=== PATIENT | male | born 1945 | race Caucasian/White ===

== ENCOUNTER 2017-01-20 06:47 | Emergency (ER) | payer OTHER ==
--- NOTE | 2017-01-20 09:53 | ER NURSING DOCUMENTATION ---
Nurse's Notes [facility] ([place], [place]) Name:Fausto Carlson Age:71 yrs Sex:Male :1945 Arrival Date:01/20/2017 Time:06:47 Bed4 Private MD: Diagnosis:Wound Recheck Presentation: 01/20 06:50 Acuity: ISHA 4 tg 06:55 Presenting complaint: Patient states: Pt came home from the [place] in [place] last night tg with a new colostomy. Pt was attempting to empty the bag this AM and accidently removed the bag, which caused the dressing to get soiled. Pt does not know how to change dressing or reattach bag. Home Health was to visit him later today. Pt did not bring any supplies to the ED. Pt is only requesting help with clean up and reattaching a new dressing/bag. Transition of care: patient was not received from another setting of care. 06:55 Method Of Arrival: Private Vehicle tg 07:06 Notified ED Physician of patient's arrival and CC Dr. Burciaga notified. tg Triage Assessment: 07:02 General: Appears in no apparent distress, Behavior is cooperative, pleasant. Pain: tg Denies pain. Neuro: Level of Consciousness is awake, alert. Cardiovascular: Capillary refill < 3 seconds. Respiratory: Respiratory effort is even, unlabored. GI: Abdomen is obese, sigmoidostomy to left of belly button. Wafer and adhesive soiled with stool. when removed, sutures are visible and intact. Skin around ostomy is pink, no obvious sign of infection. Brown liquid stool is draining from ostomy site. other Dressing over incision site is soiled and therefore removed. Incision is vertical from wasteband to above belly button. Scant clear drainage. No obvious sign of infection. Evans intact- wound is open approx 0.5cm at the middle of the incision, just below the belly button, otherwise well approximated. Wound cleaned using sterile procedure, NS, then dressed with bacitracin, xeroform, non-adherant, and medipore tape. Pt tolerated well. Derm: Bruising that is dark purple, on left low back. Musculoskeletal:. Historical: - Allergies: Lisinopril; - Home Meds: 1. losartan oral 2. other BP med at night - PMHx: Hypertension; Intestinal infection; perf colon; - PSHx: sigmoidostomy; - Tetanus: < 10 years. - Ebola Screening: : Patient negative for fever greater than or equal to 101.5 degrees Fahrenheit, and additional compatible Ebola Virus Disease symptoms. Patient denies exposure to infectious person. Patient denies travel to an Ebola-affected area in the 21 days before illness onset. No symptoms or risks identified at this time. . - Immunization history: Flu Vaccine < 1 year. - Social history: Smoking status: Patient states former smoker of tobacco. Screenin:37 Infectious Disease Risk Unable to Obtain. Abuse screen: Denies threats or abuse. Denies tg injuries from another. Nutritional screening: No deficits noted. Assessment: 07:37 See Triage Assessment done by same RN. tg 09:51 Reassessment: Plan of care (Dressing change, D/C home, have pt follow up with PCP tg Sunday or return to ED for worsening condiotions) discussed with Dr. Burciaga via phone at 0900. Dr. Burciaga agrees with plan. . Vital Signs: 07:00 BP 119 / 85; Pulse 98; Resp 16; Temp 98.2(O); Pulse Ox 94% on R/A; Weight 100.7 kg (R); tg Height 5 ft. 10 in. (177.80 cm) (R); Pain 0/10; 09:44 Pulse 84; Resp 16; Pulse Ox 94% on R/A; tg 07:00 Body Mass Index 31.85 (100.70 kg, 177.80 cm) tg ED Course: 06:50 Patient arrived in ED. ma1 06:50 Triage completed. tg 07:00 Arm band placed on Bed in low position Call Light in Reach HOB Elevated Side rails up tg x1. 07:14 Ady Molina, RN is Primary Nurse. tg 09:44 Valuables Remains with patient. tg Administered Medications: No medications were administered Outcome: 09:38 Discharged to home Pt able to transfer and take a few steps to wheelchair. Pt reports tg he is still getting his strength back, but feels "very" safe at home and is confident that he can safely perform ADLs now that he has seen how to change the ostomy dressing PRN 09:38 Condition: stable 09:38 Discharge Assessment: Patient awake and alert. [facility] [place] that [facility], it seems that although a home health consult was requested, it has not been fully ordered (it is in process) by the [place]. Pt will call his PCP on Sunday to follow up, and agrees that he will need further assistance from home health with incision dressing changes and anything else ordered by his PCP. CHAD Nguyen from Home health, came to the ED and brought supplies to change the wafer and bag. Pt has his own supplies at home. 09:38 Instructed on discharge instructions, follow up and referral plans. 09:50 Discharge ordered by . tg 09:52 Patient left the ED. tg Signatures: Ady Molina RN RN Jerri Chamorro
== END 2017-01-20 09:52 | disposition home or self-care (01) ==
LOC: ER 06:47
DX: K94.03 Colostomy malfunction (principal); Z43.3 Encounter for attention to colostomy; Z48.01 Encounter for change or removal of surgical wound dressing; Z93.3 Colostomy status; I10 Essential (primary) hypertension; Z79.899 Other long term (current) drug therapy
CPT/HCPCS: 99281

== ENCOUNTER 2017-01-26 14:08 | Inpatient (IN) | payer MEDICARE, OTHER ==
[2017-01-26 14:43] LABS: BASOPHIL# 0.1 X 10^3uL (0.0-0.1); BASOPHILS 0.6 % (0.0-2.0); EOSINOPHILS 4.6 % (0.0-6.0); EOSINOPHILS# 0.4 X 10^3uL (0.0-0.4); HEMATOCRIT 28.6 % (42.0-54.0); HEMOGLOBIN 9.8 g/dL (14.0-18.0); LYMPHOCYTES 22.4 % (20.0-40.0); MEAN CELL VOLUME 91.6 fL (80.0-100.0); MEAN CORPUS. HGB CONCENTRATION 34.4 g/dL (32.0-36.0); MEAN CORPUSCULAR HEMOGLOBIN 31.5 pg (29.0-35.0); MEAN PLATELET VOLUME 7.7 fL (7.4-10.4); MONOCYTES 5.7 % (2.0-10.0); MONOCYTES# 0.5 X 10^3uL (0.2-1.0); NEUTROPHILS 66.7 % (54.0-75.0); NEUTROPHILS# 5.8 X 10^3uL (2.6-6.7); PLATELET COUNT 349 X 10^3uL (130-440); RED BLOOD COUNT 3.12 X 10^6uL (4.20-6.10); RED CELL DISTRIBUTION WIDTH 14.6 % (11.5-14.5); WHITE BLOOD COUNT 8.8 X 10^3uL (3.9-10.7)
[2017-01-26 14:53] LABS: ALKALINE PHOSPHATASE 114 U/L (38-126); ALT 36 U/L (21-72); AST 28 U/L (17-59); BILIRUBIN, DIRECT 0.3 mg/dL (0.0-0.4); BILIRUBIN, TOTAL 1.3 mg/dL (0.2-1.3); BLOOD UREA NITROGEN 16 mg/dL (9-20); CALCIUM 8.1 mg/dL (8.4-10.2); CHLORIDE 90 mmol/L (98-107); CREATININE 1.1 mg/dL (0.7-1.3); EST GLOMERULAR FILTRATION RATE > 60 mL/min; GLUCOSE 73 mg/dL (70-100); LIPASE 209 U/L (23-300); SODIUM 121 mmol/L (137-145); TOTAL PROTEIN 7.1 g/dL (6.3-8.2)
[2017-01-26] MEDS ORDERED: HOME MEDICATION LIST NEEDED 1 EA EACH MISC ONE (15:59)
--- NOTE | 2017-01-26 16:53 | ER PHYSICIAN DOCUMENTATION ---
Physician Documentation [facility] Name:Fausto Carlson Age:71 yrs Sex:Male :1945 Arrival Date:01/26/2017 Time:14:08 Bed4 Private MD: Robbin Connell Disposition: 01/26/17 15:46 Admit ordered for Nicole Delgado. Preliminary diagnosis are Hyponatremia, Anemia, Orthostatic Hypotension. - Bed requested for Medical/Surgical. - Condition is Fair. - Problem is new. - Symptoms have improved. 23 HR OBS Yes HPI: 01/26 15:30 This 71 yrs old Male presents to ER via Private Vehicle with complaints of sc Dizziness. 15:30 The patient presents with dizziness, feeling faint, generalized weakness, sc lightheadedness. Onset: The symptom(s)/episode began/occurred gradually, 2 day(s) ago. Context: occurred at home, occurred while the patient was getting up from bed. Modifying factors: The symptoms are alleviated by lying down. Severity of symptoms: At their worst the symptoms were moderate. Crohn's Dz., new ostomy, now very orthostatic.. Historical: - Allergies: Lisinopril; - Home Meds: 1. losartan oral 2. other BP med at night - PMHx: HYPERTENSION; Intestinal infection; perf colon; Wound Recheck (January 20, 2017); CROHN'S; - PSHx: sigmoidostomy; - Tetanus: unknown. - Ebola Screening: : Patient negative for fever greater than or equal to 101.5 degrees Fahrenheit, and additional compatible Ebola Virus Disease symptoms. Patient denies exposure to infectious person. Patient denies travel to an Ebola-affected area in the 21 days before illness onset. No symptoms or risks identified at this time. . - Social history: Smoking status: Patient states former smoker of tobacco. - Immunization history: Flu Vaccine unknown. ROS: 15:37 Constitutional: Negative for fever, chills, and weight loss. sc Eyes: Negative for injury, pain, redness, and discharge. ENT: Negative for injury, pain, and discharge. Neck: Negative for injury, pain, and swelling. Cardiovascular: Negative for chest pain, palpitations, and edema. Respiratory: Negative for shortness of breath, cough, wheezing, and pleuritic chest pain. Abdomen/GI: Negative for abdominal pain, nausea, vomiting, diarrhea, and constipation. Back: Negative for injury and pain. MS/Extremity: Negative for injury and deformity. 15:37 Skin: Negative for injury, rash, and discoloration. sc 15:37 Neuro: Positive for dizziness. Exam: Head/Face: Normocephalic, atraumatic. Eyes: Pupils equal round and reactive to light, extra-ocular motions intact. Lids and lashes normal. Conjunctiva and sclera are non-icteric and not injected. Cornea within normal limits. Periorbital areas with no swelling, redness, or edema. ENT: Nares patent. No nasal discharge, no septal abnormalities noted. Tympanic membranes are normal and external auditory canals are clear. Oropharynx with no redness, swelling, or masses, exudates, or evidence of obstruction, uvula midline. Mucous membranes moist. Neck: Trachea midline, no thyromegaly or masses palpated, and no cervical lymphadenopathy. Supple, full range of motion without nuchal rigidity, or vertebral point tenderness. No meningismus. Chest/axilla: Normal chest wall appearance and motion. Nontender with no deformity. No lesions are appreciated. Cardiovascular: Regular rate and rhythm with a normal S1 and S2. No gallops, murmurs, or rubs. Normal PMI, no JVD. No pulse deficits. Respiratory: Lungs have equal breath sounds bilaterally, clear to auscultation and percussion. No rales, rhonchi or wheezes noted. No increased work of breathing, no retractions or nasal flaring. 15:42 Back: No spinal tenderness. No costovertebral tenderness. Full range of motion. sc 15:42 Constitutional: The patient appears alert, awake, frail. 15:42 Abdomen/GI: Inspection: abdomen appears normal, scar(s), are noted in the suprapubic area, Bowel sounds: normal, Palpation: abdomen is soft and non-tender, ostomy and midline scar healing well. 15:42 Neuro: Orientation: is normal, Cerebellar function: is grossly normal, Gait: unable to assess, orthostatic. Vital Signs: 14:17 BP 124 / 75 Supine; Pulse 68; Resp 20; Temp 98.2; Pulse Ox 96% ; Weight 97.52 kg; rs Height 5 ft. 10 in. (177.80 cm); Pain 0/10; 14:19 BP 106 / 78 Sitting; Pulse 78; Resp 20; Pulse Ox 95% on R/A; Pain 0/10; rs 14:21 BP 67 / 51 Standing; Pulse 90; rs 14:24 BP 124 / 83; Pulse 72; Resp 25; Pulse Ox 97% on R/A; Pain 0/10; rs 14:32 Pulse 71; Resp 14; Pulse Ox 98% on R/A; Pain 0/10; rs 14:41 BP 123 / 85; Pulse 68; Resp 18; Pulse Ox 97% on R/A; Pain 0/10; rs 15:00 BP 131 / 80 (auto/); rs 15:04 Pulse 75 MON; Resp 18; rs 15:30 BP 140 / 86 (auto/); rs 15:34 Pulse 81 MON; Resp 18; Pulse Ox 97% ; rs 16:01 BP 129 / 79 (auto/); tg 16:09 Pulse 86 MON; Resp 19; Pulse Ox 98% ; tg 14:17 Body Mass Index 30.85 (97.52 kg, 177.80 cm) rs MDM: 14:52 Patient medically screened. ma 15:44 Differential diagnosis: GI bleed, hypovolemia, sepsis. Data reviewed: vital signs, ma nurses notes, old medical records, lab test result(s), and as a result, I will admit patient. Counseling: I had a detailed discussion with the patient and/or guardian regarding: the historical points, exam findings, and any diagnostic results supporting the discharge/admit diagnosis, lab results, the need for further work-up and treatment in the hospital. Physician consultation: Nicole Delgado MD was called at 15:44, was contacted at 15:44, regarding admission, patient's condition. 01/26 14:46 Order name: CBC AUTO DIF, MDIF/RMOR IF IND; Complete Time: 15:01 EDUT 01/26 15:01 Interpretation: Abnormal: HEMOGLOBIN 9.8; HEMATOCRIT 28.6; mild anemia. ma 01/26 14:54 Order name: BASIC METABOLIC PANEL; Complete Time: 15:01 EDUT 01/26 15:01 Interpretation: Abnormal: SODIUM 121; CALCIUM 8.1. ma 01/26 14:54 Order name: HEPATIC PANEL; Complete Time: 15:01 EDUT 01/26 15:01 Interpretation: Abnormal: ALBUMIN 3.0. ma 01/26 14:54 Order name: LIPASE; Complete Time: 15:01 EDUT 01/26 15:01 Interpretation: Normal. ma 01/26 17:21 Order name: OSMOLALITY, SERUM [facility] 01/26 17:22 Order name: URINE SODIUM,RANDOM EDUT 01/26 17:28 Order name: OSMOLALITY, URINE EDUT 01/26 17:38 Order name: THYROID STIMULATING HORMONE [facility] 01/27 06:05 Order name: CBC AUTO DIF, MDIF/RMOR IF IND EDUT 01/27 06:19 Order name: BASIC METABOLIC PANEL [facility] 01/28 07:05 Order name: BASIC METABOLIC PANEL [facility] 01/28 11:04 Order name: CORTISOL EDUT 01/26 14:29 Order name: Urine Dip; Complete Time: 14:40 tg Dispensed Medications: 14:39 Drug: NS 0.9% 1000 ml; Volume: 1000 ml; Route: IV; Rate: bolus; Site: right rs antecubital; Delivery: [place] Tubing; 16:49 Follow up: IV Status: Completed infusion; IV Intake: 1000ml tg Point of Care Testing: Urine Dip: 14:47 pH: 7; ; Specific [place]: 1.01; Ketones: Negative; Glucose: Negative; Protein: tg Negative; Leukocytes: Negative; Nitrite: Negative ; Blood: Negative; Bilirubin: Negative ; Urobilinogen: Normal Signatures: Ady Molina RN RN Janay Miranda RN RN rs Chew, Scott, MD MD ma
--- NOTE | 2017-01-26 16:53 | ER NURSING DOCUMENTATION ---
Nurse's Notes [facility] Name:Fausto Carlson Age:71 yrs Sex:Male :1945 Arrival Date:01/26/2017 Time:14:08 Bed4 Private MD: Diagnosis:Hyponatremia;Anemia;Orthostatic Hypotension Presentation: 01/26 14:25 Acuity: ISHA 2 tg 14:26 Transition of care: patient was not received from another setting of care. Notified ED tg Physician of patient's arrival and CC Dr. Burciaga notified. 14:26 Method Of Arrival: Private Vehicle tg 14:48 Presenting complaint: Patient states: FEELING DIZZY WHEN STANDING SINCE YESTERDAY. NO tg FEVER OR CHILLS. REPORTS PLENTY OF PO FLUID INTAKE. INTERMITENT PAIN IN R ABD. NEW OSTOMY ON LEFT ABD. DRESSING CDI FROM MIDLINE INCISION ON ABD. Transition of care: patient was received from another setting of care (home health care). Triage Assessment: 14:49 General: Appears in no apparent distress, comfortable, Behavior is cooperative, tg pleasant. Pain: Denies pain. Neuro: Level of Consciousness is awake, alert. Cardiovascular: Capillary refill < 3 seconds. Respiratory: Respiratory effort is even, unlabored. GI: Abdomen is obese, Ostomy appliance is intact. Derm: Skin is pink, warm & dry. Historical: - Allergies: Lisinopril; - Home Meds: 1. losartan oral 2. other BP med at night - PMHx: HYPERTENSION; Intestinal infection; perf colon; Wound Recheck (January 20, 2017); CROHN'S; - PSHx: sigmoidostomy; - Tetanus: unknown. - Ebola Screening: : Patient negative for fever greater than or equal to 101.5 degrees Fahrenheit, and additional compatible Ebola Virus Disease symptoms. Patient denies exposure to infectious person. Patient denies travel to an Ebola-affected area in the 21 days before illness onset. No symptoms or risks identified at this time. . - Social history: Smoking status: Patient states former smoker of tobacco. - Immunization history: Flu Vaccine unknown. Screenin:53 Infectious Disease Risk Unable to Obtain. Abuse screen: Denies threats or abuse. Denies tg injuries from another. Nutritional screening: No deficits noted. Assessment: 14:51 See Triage Assessment done by same RN. tg 15:31 Reassessment: HEMOCULT NEGATIVE. DR BURCIAGA AND DR DELGADO NOTIFED.. tg Vital Signs: 14:17 BP 124 / 75 Supine; Pulse 68; Resp 20; Temp 98.2; Pulse Ox 96% ; Weight 97.52 kg; rs Height 5 ft. 10 in. (177.80 cm); Pain 0/10; 14:19 BP 106 / 78 Sitting; Pulse 78; Resp 20; Pulse Ox 95% on R/A; Pain 0/10; rs 14:21 BP 67 / 51 Standing; Pulse 90; rs 14:24 BP 124 / 83; Pulse 72; Resp 25; Pulse Ox 97% on R/A; Pain 0/10; rs 14:32 Pulse 71; Resp 14; Pulse Ox 98% on R/A; Pain 0/10; rs 14:41 BP 123 / 85; Pulse 68; Resp 18; Pulse Ox 97% on R/A; Pain 0/10; rs 15:00 BP 131 / 80 (auto/); rs 15:04 Pulse 75 MON; Resp 18; rs 15:30 BP 140 / 86 (auto/); rs 15:34 Pulse 81 MON; Resp 18; Pulse Ox 97% ; rs 16:01 BP 129 / 79 (auto/); tg 16:09 Pulse 86 MON; Resp 19; Pulse Ox 98% ; tg 14:17 Body Mass Index 30.85 (97.52 kg, 177.80 cm) rs ED Course: 14:10 Patient arrived in ED. lm3 14:25 Ady Molina, RN is Primary Nurse. tg 14:25 Triage completed. tg 14:35 Inserted saline lock: 20 gauge in right antecubital area and blood collected. rs 14:51 Arm band placed on Bed in low position Call Light in Reach Gowned HOB Elevated Side tg rails up x1. 14:52 Robbin Burciaga MD is Attending Physician. sc 14:53 Valuables Remains with patient. tg 15:45 Nicole Delgado MD is Admitting Physician. sc Administered Medications: 14:39 Drug: NS 0.9% 1000 ml; Volume: 1000 ml; Route: IV; Rate: bolus; Site: right rs antecubital; Delivery: [place] Tubing; 16:49 Follow up: IV Status: Completed infusion; IV Intake: 1000ml tg Point of Care Testing: Urine Dip: 14:47 pH: 7; ; Specific [place]: 1.01; Ketones: Negative; Glucose: Negative; Protein: tg Negative; Leukocytes: Negative; Nitrite: Negative ; Blood: Negative; Bilirubin: Negative ; Urobilinogen: Normal Intake: 16:49 IV: 1000ml; Total: 1000ml. tg Output: 16:29 Urine: 600ml (Voided); Total: 600ml. tg Outcome: 15:46 Decision to Admit by Provider. oh 16:48 Admitted to Med/surg accompanied by nurse, via stretcher. tg 16:48 Condition: improved 16:48 Discharge Assessment: Patient awake and alert. 16:48 Instructed on need to admit 16:50 Report given to CHAD Serra 16:52 Patient left the ED. tg Signatures: Ady Molina RN RN tg Stalker, Rachael, RN RN rs Chew, Scott, MD MD oh Gloria, Mariya lm3
[2017-01-26 17:27] LABS: OSMOLALITY, URINE 251 mOsm/Kg (500-800)
[2017-01-26] MEDS: NORMAL SALINE 1,000 ML IV SCH (17:28)
[2017-01-26 17:34] LABS: THYROID STIMULATING HORMONE 1.37 uIU/mL (0.47-4.68)
[2017-01-26] MEDS ORDERED: LORazepam 2 MG/ML INJ IV PRN (17:54)
[2017-01-26] MEDS ORDERED: THIAMINE HCL IV SCH (18:00)
[2017-01-26] MEDS ORDERED: FOLIC ACID IV SCH (18:00)
[2017-01-26] MEDS ORDERED: NORMAL SALINE IV SCH (18:00)
[2017-01-26] MEDS ORDERED: MULTIVITAMINS IV SCH (18:00)
[2017-01-26] MEDS ORDERED: NORMAL SALINE 1,000 ML IV ONE (18:45)
[2017-01-26] MEDS ORDERED: THIAMINE HCL 200 MG/2 ML VIAL ONE (18:45)
[2017-01-26] MEDS ORDERED: MULTIVITAMINS 10 ML VIAL IV ONE (18:45)
--- NOTE | 2017-01-26 22:37 | HISTORY & PHYSICAL ---
DATE OF ADMISSION: 01/26/17 ATTENDING PHYSICIAN: Nicole Delgado MD ADMITTING DIAGNOSES 1. Hyponatremia. 2. Orthostatic hypotension. 3. Anemia. 4. Dizziness and weakness. HISTORY OF PRESENT ILLNESS: Patient is a 71-year-old mal, generally cared for by the [place] system, who had been at home about a week after a hospital admission in [place] for a perforated colon, peritonitis and sepsis. He had undergone an emergency sigmoid colon resection with ostomy placement. This occurred on . He spent several weeks in the hospital, and was ultimately discharged to home. At home, he admits that he has not been eating or drinking well, and mainly has been living on Boost and oranges. He does have Home Health Care checking on him and Meals on Wheels have been organized for Sunday. Patient was extremely dizzy and unable to stand unassisted this morning, and has been using a cane at home, but required a walker. He was brought to the Emergency Room by a friend. He had some right lower quadrant pain which had resolved, and denied any fever or chills. He had not noticed any unusual output from his colostomy, and that seemed to be functioning well. In the Emergency Room he was markedly orthostatic with systolic blood pressure as low as 66 and 70. He was found to be hyponatremic and he has been given some normal saline. He is currently feeling a lot better. ALLERGIES: Lisinopril. MEDICATIONS AT HOME Losartan 100 mg daily. Terazosin 1 mg 3 capsules at bedtime. Epi-Pen as needed. Clobetasol propionate cream 0.5% to rash twice daily on legs as needed. PAST MEDICAL HISTORY 1. Crohns disease, which has been in remission according to old notes, with no recent exacerbation. It has been treated with Infliximab every 3 months, and he has done very well with that. He thinks that his disease is limited to the colon , and he has had it for many years. He does not have a history of excessive bleeding or diarrhea. 2. Benign prostatic hypertrophy for which he is taking Terazosin with good results. 3. Hypertension, which he says has been well controlled. 4. History of obstructive sleep apnea, but only if he sleeps on his back, and he tried CPAP but could not tolerate it. 5. History of alcohol abuse and has continued to drink. He did in fact take a sip of beer this morning, but did not like the taste. He denies any recent significant drinking. He reported to nursing that his beer intake has historically been 4-12 daily. However, emphasizes to me that he has not been drinking since his discharge. 6. History of gout, no exacerbations for 4-5 years. 7. Erectile dysfunction. 8. Chronic traumatic arthritis of bilateral knees, and chronic knee pain. PAST SURGICAL HISTORY 1. Sigmoid resection with a Álvarez procedure and ostomy. Plan is for takedown in 3 months. His procedure was complicated by thrombocytopenia with heparin or Lovenox. 2. Patient has had multiple arthroscopic surgeries on both knees per his own report. SOCIAL HISTORY: He has a remote history of smoking. He has had a history of heavy alcohol use but has reduced this to mild alcohol use recently. He is single and lives alone. He has a [id number] apartment, with a landlady present in the same building. He has not had any children. 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 He has a cat at home. FAMILY HISTORY: Unknown. Patient was adopted by a couple in [place], and has no knowledge of his family. REVIEW OF SYSTEMS GENERAL: Patient felt weak, dizzy and unable to stand unassisted this morning. HEENT: No ocular pain. No blurred vision. No oral lesions. No dysphagia. NECK: No difficulty with motion. No pain. RESPIRATORY: No shortness of breath. No cough. CARDIOVASCULAR: No palpitations. No chest pain. GI: Brief episode of right lower quadrant pain which he describes as knife-like which seems to have resolved. He has not had any excessive colostomy output and he denies any melena or hematochezia. He has had no nausea or vomiting. He has not been eating well. : He denies any dysuria, frequency, hematuria or urgency. NEUROLOGIC: He has been very dizzy, lightheaded or weak. No headaches or blurred vision. He has a chronic left upper extremity tremor. MUSCULOSKELETAL: He has chronic pain in bilateral knees which makes it difficult for him to walk and go up and down stairs often, but no swelling or erythema noted. HEMATOLOGY: No abnormal bleeding or bleeding noted. SKIN: He has had trauma to his right foot when he initially passed out prior to his colostomy at home. PHYSICAL EXAMINATION VITAL SIGNS: Blood pressure initially in the Emergency Room was 125/75 when lying down, 106/78 sitting and 67/51 standing. Pulse in that order was 68, 78 and 90. Temperature 98.2, respiratory rate 20, O2 saturation 96% on room air. Weight 97.52 kilograms. Height 5 feet 10 inches. Respiratory rate were 14. GENERAL: Appears fully alert and is cooperative. HEENT: Extraocular movements are intact. Pupils are equal, round and reactive to light. Sclera are anicteric. Conjunctivae are pink. NECK: No jugular venous distention. No bruits. No adenopathy. No thyromegaly. LUNGS: Clear bilaterally. CARDIOVASCULAR: Regular rate and rhythm. Distant S1, S2. No murmurs, rubs or gallops appreciated. ABDOMEN: Obese, soft, bowel sounds are quiet. Nontender. No organomegaly. No masses noted. Colostomy is just to the right of midline and appears well healed. There is very little in the colostomy bag at this point. He still has mickey present in the surgical wound, some have erythema around the insertion point, no pus. EXTREMITIES: Calves are soft. No cyanosis, clubbing or edema. Knees have some surgical scarring from previous arthroscopy. On the right foot he has an abraded and lacerated third toe with partially detached toenail and similar findings on the fifth toe. There is no erythema or purulence noted. NEUROLOGIC: Well oriented. Cranial nerves are grossly intact. Motor strength is 5/5. Deep tendon reflexes are really minimal, I could not elicit any in the lower extremities. Gait seems perfectly normal now that he has been hydrated. Left upper extremity has a resting and intention tremor present at all times. DATA: From the Emergency Room, white count is 8,800, hemoglobin 9.8, hematocrit 28.6. MCV 91.6, MCH 31.5. Platelet count 349,000. There is no left shift. Chemistry, sodium is 121, potassium 40, chloride 90, carbon dioxide 24, BUN 16, creatinine 1.1, glucose 73, calcium low at 8.1 but corrects because albumin is only 3, hepatic panel is normal. Lipase is 209. ASSESSMENT AND PLAN 1. Orthostatic hypotension, apparently from poor oral intake. Patient has been started on gentle normal saline and we will follow up with laboratory studies in the morning. In the meantime, I have ordered a urine and plasma osmolality, TSH, cortisol, urine sodium to assess for any underlying cause of hyponatremia other than dehydration. Patient does have a history of heavy alcohol use. 2. Hypertension. Will hold medications today and start them tomorrow, if the blood pressure returns to normal. He denies any cardiac history. 3. History of sleep apnea. Will monitor him with pulse oximetry over night. Patient has not been using any treatment for sleep apnea. 4. Benign prostatic hypertrophy. Terazosin will definitely worsen his orthostatic hypotension and we could consider starting Tamsulosin with caution tomorrow if his orthostatics are within normal limits. 5. Vaccination history. Appears entirely up to date with Pneumovax and flu shot , tetanus, all having been given and documented in a [facility] system chart. MTDD
[2017-01-27 06:04] LABS: BASOPHIL# 0.1 X 10^3uL (0.0-0.1); BASOPHILS 0.8 % (0.0-2.0); EOSINOPHILS# 0.4 X 10^3uL (0.0-0.4); HEMOGLOBIN 8.7 g/dL (14.0-18.0); LYMPHOCYTES 22.3 % (20.0-40.0); LYMPHOCYTES# 1.4 X 10^3uL (0.8-3.8); MEAN CELL VOLUME 91.7 fL (80.0-100.0); MEAN CORPUSCULAR HEMOGLOBIN 32.1 pg (29.0-35.0); MEAN PLATELET VOLUME 7.8 fL (7.4-10.4); MONOCYTES 5.4 % (2.0-10.0); MONOCYTES# 0.3 X 10^3uL (0.2-1.0); NEUTROPHILS 65.5 % (54.0-75.0); NEUTROPHILS# 4.1 X 10^3uL (2.6-6.7); PLATELET COUNT 299 X 10^3uL (130-440); RED BLOOD COUNT 2.72 X 10^6uL (4.20-6.10); RED CELL DISTRIBUTION WIDTH 14.4 % (11.5-14.5); WHITE BLOOD COUNT 6.3 X 10^3uL (3.9-10.7)
[2017-01-27 06:12] LABS: BLOOD UREA NITROGEN 11 mg/dL (9-20); CALCIUM 7.9 mg/dL (8.4-10.2); CHLORIDE 100 mmol/L (98-107); CREATININE 0.8 mg/dL (0.7-1.3); EST GLOMERULAR FILTRATION RATE > 60 mL/min; GLUCOSE 84 mg/dL (70-100); POTASSIUM 3.8 mmol/L (3.5-5.1); SODIUM 129 mmol/L (137-145)
--- NOTE | 2017-01-27 08:33 | PROGRESS NOTE: IM APSO ---
Assessment and Plan - Date of Encounter Date of Encounter: 01/27/17 (1) Hyponatremia with decreased serum osmolality Status: Acute Assessment and plan: Sodium increased to 129 with gentle hydration. Serum osmolality and urine osmolality are both low, urine sodium is low, consistent with dehydration or adrenal insufficiency, and not SIADH. TSH is normal. Cortisol level is pending. Patient may need an ACTH stimulation test. Current Visit: Yes (2) Orthostatic hypotension Status: Acute Assessment and plan: Butler for etiology is a combination of dehydration and Terazosin use. The medication has been held, and the patient is being hydrated. We will repeat the orthostatics today to reassess. Current Visit: Yes (3) Hypertension Status: Chronic Assessment and plan: Medications have been held, pending resolution of his orthostasis and hypotension. I will reassess the need to start the medications once the patient is doing better. Current Visit: Yes - Time Spent With Patient Total time spent with greater than 50% in coordination of care (as documented) at patient's floor/unit and/or counseling patient: 16-24 minutes IM: PN Subjective Interval history: Patient reports that he feels much better today. He is eating and drinking. He has concerns about poor colostomy output this morning, but no abdominal pain. General: good appetite, no fatigue, no malaise, no fever, no chills HEENT: no headache Cardiovascular: no chest pain Respiratory: no cough Gastrointestinal: constipation, flatus, no abdominal pain Genitourinary: no dysuria Musculoskeletal: no pain Neurological: no headache IM: PN Objective Exam - I&O/Vital Signs I&O: Intake & Output 01/26/17 01/27/17 01/27/17 21:59 05:59 13:59 Intake Total 240 1579 Output Total 175 1555 Balance 65 24 Weight 93.667 kg 93.6 kg Intake: IV 1279 Right Antecubital 1279 Oral 240 300 Output: Urine 175 1555 Other: Urine Appearance Clear Clear Urine Color Yellow Yellow Voiding Method Urinal Urinal Vital Signs: Last Vital Signs Temp 36.9 C 01/27/17 06:25 Pulse 82 01/27/17 06:25 Resp 16 01/27/17 06:25 BP 139/79 01/27/17 06:25 Pulse Ox 91 01/27/17 06:25 Oxygen Delivery Method Room Air - Constitutional General appearance: Present: average body habitus - Head Head exam: Present: normal inspection - Eye Eye exam: Present: EOMI. Absent: conjunctival injection Pupils: Present: PERRL - ENT ENT exam: Present: mucous membranes moist - Neck Neck exam: Present: full ROM - Respiratory Respiratory exam: Present: clear - Cardiovascular Cardiovascular exam: Present: RRR - GI/Abdominal GI/Abdominal exam: Present: normal bowel sounds, other (soft stool beginning to extrude from the stoma. ) - Extremities Exam Extremities exam: Absent: calf tenderness, edema, tenderness - Neurological Exam Neurological exam: Present: CN II-XII intact, normal gait. Absent: reflexes normal - Skin Skin exam: Present: other (surgical wound healing well on abdomen). Absent: abrasion - Allied Health Notes Allied health notes reviewed: nursing - Lab Labs: Laboratory Last Values WBC 6.3 X 10^3uL (3.9-10.7) 01/27/17 05:45 RBC 2.72 X 10^6uL (4.20-6.10) L 01/27/17 05:45 Hgb 8.7 g/dL (14.0-18.0) L 01/27/17 05:45 Hct 25.0 % (42.0-54.0) L 01/27/17 05:45 MCV 91.7 fL (80.0-100.0) 01/27/17 05:45 MCH 32.1 pg (29.0-35.0) 01/27/17 05:45 MCHC 35.0 g/dL (32.0-36.0) 01/27/17 05:45 RDW 14.4 % (11.5-14.5) 01/27/17 05:45 Plt Count 299 X 10^3uL (130-440) 01/27/17 05:45 MPV 7.8 fL (7.4-10.4) 01/27/17 05:45 Neutrophils % 65.5 % (54.0-75.0) 01/27/17 05:45 Lymphocytes % 22.3 % (20.0-40.0) 01/27/17 05:45 Eosinophils % 6.0 % (0.0-6.0) 01/27/17 05:45 Basophils % 0.8 % (0.0-2.0) 01/27/17 05:45 Neutrophils # 4.1 X 10^3uL (2.6-6.7) 01/27/17 05:45 Lymphocytes # 1.4 X 10^3uL (0.8-3.8) 01/27/17 05:45 Monocytes 5.4 % (2.0-10.0) 01/27/17 05:45 Monocytes # 0.3 X 10^3uL (0.2-1.0) 01/27/17 05:45 Eosinophils # 0.4 X 10^3uL (0.0-0.4) 01/27/17 05:45 Basophils # 0.1 X 10^3uL (0.0-0.1) 01/27/17 05:45 Sodium 129 mmol/L (137-145) L D 01/27/17 05:45 Potassium 3.8 mmol/L (3.5-5.1) 01/27/17 05:45 Chloride 100 mmol/L (98-107) 01/27/17 05:45 Carbon Dioxide 22 mmol/L (22-30) 01/27/17 05:45 BUN 11 mg/dL (9-20) 01/27/17 05:45 Creatinine 0.8 mg/dL (0.7-1.3) 01/27/17 05:45 GFR Calculation > 60 mL/min 01/27/17 05:45 Glucose 84 mg/dL (70-100) 01/27/17 05:45 Serum Osmolality 252 mOsm/Kg (280-295) L 01/26/17 14:34 Calcium 7.9 mg/dL (8.4-10.2) L 01/27/17 05:45 Total Bilirubin 1.3 mg/dL (0.2-1.3) 01/26/17 14:35 Direct Bilirubin 0.3 mg/dL (0.0-0.4) 01/26/17 14:35 AST 28 U/L (17-59) 01/26/17 14:35 ALT 36 U/L (21-72) 01/26/17 14:35 Alkaline Phosphatase 114 U/L (38-126) 01/26/17 14:35 Total Protein 7.1 g/dL (6.3-8.2) 01/26/17 14:35 Albumin 3.0 g/dL (3.5-5.0) L 01/26/17 14:35 Lipase 209 U/L (23-300) 01/26/17 14:35 TSH Cancelled 01/26/17 14:35 Urine Osmolality 251 mOsm/Kg (500-800) L 01/26/17 14:35 Urine Sodium 8 mmol/L (30-90) L 01/26/17 14:35 Quality Questions - VTE Prophylaxis Assessment VTE Present on Admission?: No Patient at risk for venous thromboembolism?: Yes VTE Risk Level: Moderate Risk Pharmaceutical VTE prophylaxis contraindication reason: N/A- VTE prophylaxsis ordered (3) Hypertension Qualifiers: Hypertension type: essential hypertension Qualified Code(s): I10 - Essential (primary) hypertension
[2017-01-27] MEDS: TAMSULOSIN HCL 0.4 MG CAPSULE PO SCH (09:57)
[2017-01-27] MEDS: NORMAL SALINE 1,000 ML IV SCH ×2 (13:00→22:57)
[2017-01-28 06:55] LABS: BLOOD UREA NITROGEN 6 mg/dL (9-20); CALCIUM 7.8 mg/dL (8.4-10.2); CHLORIDE 102 mmol/L (98-107); CREATININE 0.7 mg/dL (0.7-1.3); EST GLOMERULAR FILTRATION RATE > 60 mL/min; GLUCOSE 88 mg/dL (70-100); POTASSIUM 3.5 mmol/L (3.5-5.1); SODIUM 130 mmol/L (137-145)
[2017-01-28] MEDS: TAMSULOSIN HCL 0.4 MG CAPSULE PO SCH (08:04)
[2017-01-28] MEDS: NORMAL SALINE 1,000 ML IV SCH (08:04)
[2017-01-28] MEDS ORDERED: ACETAMINOPHEN 325 MG TABLET PO PRN (08:22)
--- NOTE | 2017-01-28 09:57 | PROGRESS NOTE: IM APSO ---
Assessment and Plan - Date of Encounter Date of Encounter: 01/28/17 (1) Hyponatremia with decreased serum osmolality Status: Acute Assessment and plan: Sodium has not fully responded. No obvious cause for the problem. Cortisol is pending, lab did not run it as ordered. Patient has received adequate fluid replacement, so I will discontinue IVF. Urine is appropriately dilute, so no suggestion of SIADH. Renal function seems normal. Patient's blood pressure is not suggestive of adrenal insufficiency. A low dose of salt tablet may well be helpful. Patient has had severe GI fluid losses, which may well be contributing to the low sodium Current Visit: Yes (2) Orthostatic hypotension Status: Acute Assessment and plan: Terazosin was discontinued, Tamsulosin substituted for his BPH. Patient has been well hydrated now. Current Visit: Yes (3) Hypertension Status: Chronic Assessment and plan: Blood pressure is climbing, so I will restart the patient's Losartan at 50mg daily, and observe. Current Visit: Yes (4) DVT prophylaxis Status: Acute Assessment and plan: Patient is staying longer than expected, so I will start SCDs. He has a history of thrombocytopenia with heparin/Lovenox, as reported by the [facility] system. Current Visit: Yes - Time Spent With Patient Total time spent with greater than 50% in coordination of care (as documented) at patient's floor/unit and/or counseling patient: 25 - 35 minutes Estimated anticipated discharge: Tomorrow IM: PN Subjective Interval history: Feeling better, no dizziness. His colostomy is putting out stool that is fairly soft, after he drank a lot of apple juice. He has no one at home to help care for him today, or to get him home, and his meals on wheels don't start until tomorrow. His sodium is only 130. Cortisol test requested was not run, and is now being run. Blood pressure is rising to the point of needing to start medications. General: good appetite, no fatigue, no malaise, no fever, no chills HEENT: no headache Cardiovascular: no chest pain Respiratory: no cough Gastrointestinal: flatus, no abdominal pain, no constipation Genitourinary: no dysuria Musculoskeletal: no pain Neurological: no headache IM: PN Objective Exam - I&O/Vital Signs I&O: Intake & Output 01/27/17 01/28/17 01/28/17 21:59 05:59 13:59 Intake Total 2270 1800 Output Total 1124 2044 Balance 1145 -245 Weight 92.23 kg Intake: IV 1100 1300 Right Antecubital 1100 Left Forearm 1300 Oral 1170 500 Output: Urine 1124 2044 Other: Urine Appearance Clear Clear Urine Color Yellow Yellow Stool Characteristics Hard Voiding Method Urinal Urinal # Voids 5 # Bowel Movements 1 Vital Signs: Last Vital Signs Temp 37.0 C 01/28/17 06:47 Pulse 86 01/28/17 06:47 Resp 14 01/28/17 06:47 BP 142/95 01/28/17 06:47 Pulse Ox 91 01/28/17 06:47 Oxygen Delivery Method Room Air - Constitutional General appearance: Present: average body habitus - Head Head exam: Present: normal inspection - Eye Eye exam: Present: EOMI. Absent: conjunctival injection Pupils: Present: PERRL - ENT ENT exam: Present: mucous membranes moist - Neck Neck exam: Present: full ROM - Respiratory Respiratory exam: Present: clear - Cardiovascular Cardiovascular exam: Present: RRR - GI/Abdominal GI/Abdominal exam: Present: normal bowel sounds, other (soft stool beginning to extrude from the stoma. ) - Extremities Exam Extremities exam: Absent: calf tenderness, edema, tenderness - Neurological Exam Neurological exam: Present: CN II-XII intact, normal gait. Absent: reflexes normal - Skin Skin exam: Present: other (surgical wound healing well on abdomen, mickey need to come out. Central wound is gapped but closed.). Absent: abrasion - Allied Health Notes Allied health notes reviewed: nursing - Lab Labs: Laboratory Last Values WBC 6.3 X 10^3uL (3.9-10.7) 01/27/17 05:45 RBC 2.72 X 10^6uL (4.20-6.10) L 01/27/17 05:45 Hgb 8.7 g/dL (14.0-18.0) L 01/27/17 05:45 Hct 25.0 % (42.0-54.0) L 01/27/17 05:45 MCV 91.7 fL (80.0-100.0) 01/27/17 05:45 MCH 32.1 pg (29.0-35.0) 01/27/17 05:45 MCHC 35.0 g/dL (32.0-36.0) 01/27/17 05:45 RDW 14.4 % (11.5-14.5) 01/27/17 05:45 Plt Count 299 X 10^3uL (130-440) 01/27/17 05:45 MPV 7.8 fL (7.4-10.4) 01/27/17 05:45 Neutrophils % 65.5 % (54.0-75.0) 01/27/17 05:45 Lymphocytes % 22.3 % (20.0-40.0) 01/27/17 05:45 Eosinophils % 6.0 % (0.0-6.0) 01/27/17 05:45 Basophils % 0.8 % (0.0-2.0) 01/27/17 05:45 Neutrophils # 4.1 X 10^3uL (2.6-6.7) 01/27/17 05:45 Lymphocytes # 1.4 X 10^3uL (0.8-3.8) 01/27/17 05:45 Monocytes 5.4 % (2.0-10.0) 01/27/17 05:45 Monocytes # 0.3 X 10^3uL (0.2-1.0) 01/27/17 05:45 Eosinophils # 0.4 X 10^3uL (0.0-0.4) 01/27/17 05:45 Basophils # 0.1 X 10^3uL (0.0-0.1) 01/27/17 05:45 Sodium 130 mmol/L (137-145) L 01/28/17 06:30 Potassium 3.5 mmol/L (3.5-5.1) 01/28/17 06:30 Chloride 102 mmol/L (98-107) 01/28/17 06:30 Carbon Dioxide 22 mmol/L (22-30) 01/28/17 06:30 BUN 6 mg/dL (9-20) L 01/28/17 06:30 Creatinine 0.7 mg/dL (0.7-1.3) 01/28/17 06:30 GFR Calculation > 60 mL/min 01/28/17 06:30 Glucose 88 mg/dL (70-100) 01/28/17 06:30 Serum Osmolality 252 mOsm/Kg (280-295) L 01/26/17 14:34 Calcium 7.8 mg/dL (8.4-10.2) L 01/28/17 06:30 Total Bilirubin 1.3 mg/dL (0.2-1.3) 01/26/17 14:35 Direct Bilirubin 0.3 mg/dL (0.0-0.4) 01/26/17 14:35 AST 28 U/L (17-59) 01/26/17 14:35 ALT 36 U/L (21-72) 01/26/17 14:35 Alkaline Phosphatase 114 U/L (38-126) 01/26/17 14:35 Total Protein 7.1 g/dL (6.3-8.2) 01/26/17 14:35 Albumin 3.0 g/dL (3.5-5.0) L 01/26/17 14:35 Lipase 209 U/L (23-300) 01/26/17 14:35 TSH Cancelled 01/26/17 14:35 Urine Osmolality 251 mOsm/Kg (500-800) L 01/26/17 14:35 Urine Sodium 8 mmol/L (30-90) L 01/26/17 14:35 (3) Hypertension Qualifiers: Hypertension type: essential hypertension Qualified Code(s): I10 - Essential (primary) hypertension
[2017-01-28] MEDS ORDERED: MAG-AL PLUS XS SUSP 30 ML UDC PO PRN (10:05)
[2017-01-28] MEDS ORDERED: ZOLPIDEM TARTRATE 5 MG TABLET PO PRN (10:05)
[2017-01-28] MEDS: SODIUM CHLORIDE 1 GM TABLET PO SCH (10:44)
[2017-01-28] MEDS: ASCORBIC ACID 500 MG TABLET PO SCH ×2 (10:44→20:50)
[2017-01-28] MEDS: MULTIVITAMINS THERAPEUTIC 1 TABLET PO SCH (10:44)
[2017-01-28] MEDS: FERROUS SULFATE 300 MG/5 ML PO SCH ×2 (10:44→20:49)
[2017-01-28] MEDS: LOSARTAN POTASSIUM 50 MG TABLET PO SCH (10:44)
[2017-01-28 22:51] VITALS: RESP 20
[2017-01-29 06:21] VITALS: TEMP 99.7
[2017-01-29 06:39] LABS: BLOOD UREA NITROGEN 6 mg/dL (9-20); CALCIUM 7.8 mg/dL (8.4-10.2); CHLORIDE 102 mmol/L (98-107); CREATININE 0.8 mg/dL (0.7-1.3); EST GLOMERULAR FILTRATION RATE > 60 mL/min; GLUCOSE 91 mg/dL (70-100); POTASSIUM 3.5 mmol/L (3.5-5.1); SODIUM 132 mmol/L (137-145)
[2017-01-29 07:45] VITALS: BP 158/90; PULSE 81; O2SAT 97
--- NOTE | 2017-01-29 07:54 | DC SUMMARY: IM Note ---
Discharge Summary: IM/Peds Provider: Date of Admission: 01/28/17 Admitting Provider: MICHAEL DUTTA MD Attending Provider: MICHAEL DUTTA MD Discharging Provider: MICHAEL DUTTA MD Primary Care Provider: Discharge Date: 01/29/17 - Diagnosis (1) Hyponatremia with decreased serum osmolality Status: Acute (2) Orthostatic hypotension Status: Acute (3) Hypertension Status: Chronic Qualifiers: Hypertension type: essential hypertension Qualified Code(s): I10 - Essential (primary) hypertension (4) DVT prophylaxis Status: Acute Hospital Course: Patient was admitted through the ER with severe orthostatic hypotension and hyponatremia. Please see H&P for details. 1. Hyponatremia. Patient was felt to be severely dehydrated and was treated with NS. Labs obtained prior to administration of NS showed low serum and urine osmolality, and low urine sodium. His sodium corrected to 130 with fluids , and he was subsequently given a salt tablet of 1gm, with correction to 132 at the time of discharge. He has a recent ostomy placement, and severe GI losses prior to that. I note that his sodium at the time of discharge from the [facility] was 132, in fact. Patient is alone at home, and has poor access to nutrition. I have kept him in house until I am sure that Meals on Wheels has started, and he has made arrangements with a friend to bring a meal per day , also. He denies any recent alcohol consumption, and I discussed with him the importance of not resuming his prior habits of excessive consumption. 2. Orthostatic hypotension. This was severe on admission, and improved with hydration. Additionally, he was taking Terazosin 3mg at HS, and I stopped that and switched him to Tamsulosin 0.4mg daily. He will need a prescription filled for that drug. 3. Anemia, post operative. Stool from the colostomy was heme negative. Patient had a hemoglobin of 8.7 and hematocrit of 27 after hydration. He left the [facility] with similar counts, and has not been taking any iron. I assume the anemia is a combination of surgical blood loss and generally poor nutrition, with a history of alcoholism. He was given a multivitamin bag IV, initially, and I have since started him on iron, vitamin C and a multivitamin. 4. Hypertension. Patient's blood pressure was very low initially, and his Losartan was held. I resumed it on 01/28/2017. His blood pressure was a little high on the morning of discharge, which may reflect the discontinuation of his Terazosin, and that will need to be reassessed. 5. New colostomy. Patient does have Home Health Care to assist with this. It seems to be functioning normally. There is a planned take down in three months, he states. Ronnie were still in place, with several just about falling out, so we removed most of them, leaving a few around an area of the surgical wound that was gapping, but appeared closed. The wound did not exhibit any purulence or erythema. Patient is being discharged home with continuation of Home Health Care. I have emphasized to them the need to make sure the patient has access to proper nutrition and hydration. He has follow up appointment with two of his physicians on Sunday of this week, and we are copying the entire chart for him to take to those appointments. - Time Spent with Patient Total time spent providing and/or coordinating discharge services: Time with patient DS: Greater than 30 minutes Specific discharge activities: Use a walker or cane to ambulate Discharge - Patient/Caregiver Discharge Instructions Activity Level: Ambulate as tolerated, use walker or cane Overall discharge status: patient is progressing back to baseline Home Medications: Ferrous Sulfate 325 mg PO DAILY #90 tablet Tamsulosin HCl [Flomax*] 0.4 mg PO DAILY #90 cap Multivitamins,Therapeutic [Thera Multivitamin*] 1 tab PO DAILY #90 tablet Ascorbic Acid [Vitamin C*] 500 mg PO BID #60 tablet Orders: Home Health Care Location: Determined By Patient Disposition: HOME HEALTH CARE Discharge Summary Data - Medication History Medication History: Home Medications EPINEPHrine [Epipen] 0.3 mg IM PRN PRN 01/27/17 Losartan Potassium [Cozaar*] 50 mg PO DAILY 01/27/17 Terazosin HCl [Terazosin HCl*] 3 mg PO HS 01/27/17 Inpatient Medications 01/28/17 10:05 Mag-Al Plus Xs Susp [Maalox Liquid] 30 ml PO Q3H PRN Zolpidem Tartrate [Ambien] 5 mg PO HS PRN 01/28/17 10:15 Ferrous Sulfate Liq 120 mg PO BID 01/28/17 11:00 Ascorbic Acid [Vitamin C] 500 mg PO BID Multivitamins,Therapeutic [Thera] 1 tab PO DAILY Sodium Chloride [Salt Tablet] 1 gm PO DAILY Procedures and tests throughout hospitalization: Completed Lab Orders 01/29/17 05:00 BMP [BASIC METABOLIC PANEL] [CHEM] AMDRAW HEMATOCRIT [HEM] AMDRAW Pending Orders 01/28/17 10:05 Mag-Al Plus Xs Susp [Maalox Liquid] 30 ml PO Q3H PRN Zolpidem Tartrate [Ambien] 5 mg PO HS PRN 01/28/17 10:08 SCD's [Sequential Compression Device] WHILE IN BED 01/28/17 10:15 Ferrous Sulfate Liq 120 mg PO BID 01/28/17 11:00 Ascorbic Acid [Vitamin C] 500 mg PO BID Multivitamins,Therapeutic [Thera] 1 tab PO DAILY Sodium Chloride [Salt Tablet] 1 gm PO DAILY Labs on day of discharge: Labs from last 24 hours 01/29/17 05:00 Hct 26.0 L Sodium 132 L Potassium 3.5 Chloride 102 Carbon Dioxide 24 BUN 6 L Creatinine 0.8 GFR Calculation > 60 Glucose 91 Calcium 7.8 L IM: Discharge Physical Exam - I&O/Vital Signs I&O: Intake & Output 01/28/17 01/29/17 01/29/17 21:59 05:59 13:59 Intake Total 1410 800 Output Total 1325 1950 Balance 85 -1150 Weight 96 kg Intake: IV 500 Left Forearm 500 Oral 910 800 Output: Urine 1325 1950 Other: Urine Appearance Clear Clear Urine Color Yellow Yellow Stool Size Moderate Stool Characteristics Liquid Brown Voiding Method Urinal Urinal # Voids 5 Vital Signs: Last Vital Signs Temp 37.6 C H 01/29/17 06:19 Pulse 81 01/29/17 07:42 Resp 20 01/29/17 06:19 BP 158/90 01/29/17 07:42 Pulse Ox 97 01/29/17 07:42 Oxygen Delivery Method Room Air - Constitutional General appearance: Present: average body habitus - Head Head exam: Present: normal inspection - Eye Eye exam: Present: EOMI. Absent: conjunctival injection Pupils: Present: PERRL - ENT ENT exam: Present: mucous membranes moist - Neck Neck exam: Present: full ROM - Respiratory Respiratory exam: Present: clear - Cardiovascular Cardiovascular exam: Present: RRR - GI/Abdominal GI/Abdominal exam: Present: normal bowel sounds, other (large amount of gas in ostomy bag. ) - Extremities Exam Extremities exam: Absent: calf tenderness, edema, tenderness - Neurological Exam Neurological exam: Present: CN II-XII intact, normal gait. Absent: reflexes normal - Skin Skin exam: Present: other (Ronnie remain only around the wound which is gapping. ). Absent: abrasion - Allied Health Notes Allied health notes reviewed: nursing
[2017-01-29] MEDS: FERROUS SULFATE 300 MG/5 ML PO SCH (08:17)
[2017-01-29] MEDS: ASCORBIC ACID 500 MG TABLET PO SCH (08:18)
[2017-01-29] MEDS: TAMSULOSIN HCL 0.4 MG CAPSULE PO SCH (08:18)
[2017-01-29] MEDS: LOSARTAN POTASSIUM 50 MG TABLET PO SCH (08:19)
[2017-01-29] MEDS: MULTIVITAMINS THERAPEUTIC 1 TABLET PO SCH (08:19)
[2017-01-29] MEDS: SODIUM CHLORIDE 1 GM TABLET PO SCH (08:19)
== END 2017-01-29 08:12 | disposition home or self-care (01) | DRG 641 ==
LOC: ER 14:08 → IN 16:40 → OBSVTOIN 01-28 09:49
PROVIDERS: ADMIT Internal Medicine; ATTEND Internal Medicine
DX: E87.1 Hypo-osmolality and hyponatremia (principal); I95.1 Orthostatic hypotension; I10 Essential (primary) hypertension; K50.10 Crohn's disease of large intestine without complications; N40.0 Benign prostatic hyperplasia without lower urinary tract symptoms; G47.33 Obstructive sleep apnea (adult) (pediatric); Z72.89 Other problems related to lifestyle; M10.9 Gout, unspecified; M13.861 Other specified arthritis, right knee; M13.862 Other specified arthritis, left knee; Z93.3 Colostomy status; D64.89 Other specified anemias; Z79.899 Other long term (current) drug therapy
CPT/HCPCS: 36415; 80048; 80076; 82533; 83690; 83930; 83935; 84300; 84443; 85014; 85025; 96360; 96361; 96365; 96366; 99285; G0378; J7030